=== PATIENT | male | born 1970 | race Caucasian/White ===

== ENCOUNTER 2018-05-09 15:00 | Emergency (ER) | payer MEDICAID, OTHER ==
[~2018-05-09] VITALS: Ht 177.8 cm; Wt 80.0 kg
[2018-05-09] MEDS ORDERED: IBUPROFEN 200 MG TABLET ONE (15:27)
[2018-05-09] MEDS ORDERED: IBUPROFEN 200 MG TABLET PO ONE (15:30)
[2018-05-09] MEDS ORDERED: PLEASE ENTER ALLERGIES MC SCH (15:30)
[2018-05-09 15:31] VITALS: BP 151/85
== END 2018-05-09 16:00 | disposition home or self-care (01) ==
LOC: ED 15:40
DX: S93.401A Sprain of unspecified ligament of right ankle, initial encounter (principal); X50.1XXA Overexertion from prolonged static or awkward postures, initial encounter; Y93.89 Activity, other specified; Y99.8 Other external cause status; Y92.410 Unspecified street and highway as the place of occurrence of the external cause
CPT/HCPCS: 99284

== ENCOUNTER 2018-05-13 06:57 | Emergency (ER) | payer MEDICAID ==
[~2018-05-13] VITALS: Ht 177.8 cm; Wt 91.9 kg
[2018-05-13 07:00] VITALS: BP 138/79
[2018-05-13] MEDS ORDERED: DEXAMETHASONE 4 MG/ML, 1ML PO ONE (07:30)
[2018-05-13] MEDS ORDERED: DEXAMETHASONE 4 MG TABLET ONE (07:41)
[2018-05-13] MEDS ORDERED: DEXAMETHASONE 4 MG/ML, 1ML ONE (07:43)
== END 2018-05-13 08:25 | disposition home or self-care (01) ==
LOC: ED 08:21
DX: B34.9 Viral infection, unspecified (principal); H57.8 Other specified disorders of eye and adnexa
CPT/HCPCS: 87081; 87880; 99284; J1100